=== PATIENT | female | born 1990 ===

== ENCOUNTER 2021-02-12 13:17 | Emergency (ER) | payer OTHER ==
[~2021-02-12] VITALS: Ht 162.6 cm; Wt 54.9 kg
[2021-02-12] MEDS ORDERED: PEPCID AC20 MG PO (18:09)
[2021-02-12] MEDS ORDERED: ZOFRAN8 MG PO (18:09)
== END 2021-02-21 | disposition home or self-care (01) ==
LOC: ER 13:17
DX: R10.84 Generalized abdominal pain (principal); Z20.822 Contact with and (suspected) exposure to COVID-19